=== PATIENT | male | born 1995 | race Caucasian/White ===

== ENCOUNTER 2020-02-18 14:47 | Observation (INO) | payer BC ==
[2020-02-18] MEDS ORDERED: NA CHLORIDE 0.9% 1,000 ML ONE (15:07)
[2020-02-18] MEDS ORDERED: PIPER/TAZO/NS 3.375gm 3.375 GM/100 ML BAG ONE (15:08)
[2020-02-18] MEDS ORDERED: ONDANSETRON 4 MG/2 ML VIAL IV PRN (15:21)
[2020-02-18] MEDS ORDERED: ACETAMINOPHEN 500 MG TAB PO PRN (15:21)
[2020-02-18] MEDS ORDERED: D5 0.45 NS 1,000 ML IV SCH (16:00)
[2020-02-18] MEDS ORDERED: BUPIVACA 0.25%/EPI 0.0005%/PF 30 ML VIAL ONE (16:11)
[2020-02-18] MEDS ORDERED: propofoL 200 MG/20 ML VIAL IV ONE (16:15)
[2020-02-18] MEDS ORDERED: ROCURONIUM 50 MG/5 ML VIAL IV ONE (16:16)
[2020-02-18] MEDS ORDERED: LIDOCAINE 2% MPF 5 ML VIAL ONE (16:16)
[2020-02-18] MEDS ORDERED: FENTANYL CITR 100 MCG/2 ML ONE (16:17)
--- NOTE | 2020-02-18 16:23 | ER ---
Nurse's Notes [facility] Name: Bereket Chisholm Age: 24 yrs Sex: Male : 1995 Arrival Date: 02/18/2020 Time: 14:50 Bed 6 Private MD: Diagnosis: Acute appendicitis Presentation: 02/17 14:50 Chief complaint: Patient states: Had an outpatient CT just prior to arrival which ss showed appendicitis. Pt c/o RLQ pain/ soreness x 4 days. Denies fever. Coronavirus screen: Patient denies a cough. Patient denies shortness of breath or difficulty breathing. Patient denies measured and/or subjective temperature greater than 100.4F prior to today's visit. Patient denies travel on a cruise ship or to a country the [facility] currently lists as an affected area. Patient denies contact with known and/or suspected case of COVID-19. Proceed with normal triage. Patient instructed to continue to wear a mask when interacting with others. Patient moved to private room, placed in contact and droplet isolation with eye protection until further assessment. Ebola Screen: Patient denies exposure to infectious person. Patient denies travel to an Ebola-affected area in the 21 days before illness onset. Initial Sepsis Screen: Does the patient meet any 2 criteria? No. Patient's initial sepsis screen is negative. Does the patient have a suspected source of infection? No. Patient's initial sepsis screen is negative. Risk Assessment: Do you want to hurt yourself or someone else? Patient reports no desire to harm self or others. Onset of symptoms was February 14, 2020. 14:50 Method Of Arrival: Wheelchair ss 14:50 Acuity: EMMA 3 ss Historical: - Allergies: 14:53 SHELLFISH; ss 14:53 peanuts; ss 14:53 Wheat/glutens; ss - PMHx: 14:53 None; ss - PSHx: 14:53 None; ss - Immunization history:: Adult Immunizations up to date. - Social history:: Smoking status: Patient denies any tobacco usage or history of. Screenin:53 Abuse screen: Denies threats or abuse. Denies injuries from another. Nutritional ss screening: No deficits noted. Tuberculosis screening: Never had TB. Fall Risk None identified. 14:53 Abuse screen: Denies threats or abuse. Nutritional screening: No deficits noted. ll1 Tuberculosis screening: No symptoms or risk factors identified. Fall Risk IV access (20 points). Total Baca Fall Scale indicates No Risk (0-24 pts). Assessment: 14:53 General: Appears in no apparent distress. Behavior is calm, cooperative. Pain: ll1 Complains of pain in abdomen Quality of pain is described as aching. GI: Abdomen is flat, Bowel sounds present X 4 quads. Abd is soft and non tender X 4 quads. Reports lower abdominal pain. 14:54 Neuro: No deficits noted. Cardiovascular: No deficits noted. Respiratory: No deficits ll1 noted. 16:01 Reassessment: Patient appears in no apparent distress at this time. No changes from ll1 previously documented assessment. Patient and/or family updated on plan of care and expected duration. Pain level reassessed. Patient is alert, oriented x 3, equal unlabored respirations, skin warm/dry/pink. Surgeon at bedside. 16:20 Reassessment: Patient appears in no apparent distress at this time. No changes from ll1 previously documented assessment. Patient and/or family updated on plan of care and expected duration. Pain level reassessed. Patient is alert, oriented x 3, equal unlabored respirations, skin warm/dry/pink. Vital Signs: 14:50 BP 127 / 72; Pulse 79; Resp 15; Temp 98.4(TE); Pulse Ox 99% on R/A; Weight 68.04 kg; ss Height 5 ft. 9 in. (175.26 cm); Pain 0/10; 15:13 BP 128 / 69; Pulse 78; Resp 16; Pulse Ox 100% ; ll1 16:01 BP 118 / 70; Pulse 71; Resp 16; Pulse Ox 100% ; Pain 2/10; ll1 14:50 Body Mass Index 22.15 (68.04 kg, 175.26 cm) ED Course: 14:50 Patient arrived in ED. ss 14:50 Anu Mckenzie RN is Primary Nurse. ll1 14:51 Chucky Flores MD is Attending Physician. kdr 14:52 Triage completed. ss 14:52 Maintain EMS IV. Dressing intact. Good blood return noted. Site clean \T\ dry. Gauge \T\ ll 1 site: 22 G R AC. 14:53 Arm band placed on right wrist. ss 14:53 Patient has correct armband on for positive identification. Bed in low position. Call light in reach. 16:20 No provider procedures requiring assistance completed. Patient admitted, IV remains in [address] 16:22 Chucky Flores MD is Hospitalizing Provider. [facility] 16:22 Chucky Flores MD is Hospitalizing Provider. [facility] Administered Medications: 15:11 Drug: Zosyn 3.375 grams Route: IVPB; Infused Over: 60 mins; Site: right antecubital; [facility] 16:19 Follow up: Response: No adverse reaction; IV Status: Infusion continued upon admission; [facility] IV Intake: 35ml 15:12 Drug: NS 0.9% 1000 ml Route: IV; Rate: 1 bolus; Site: right antecubital; [facility] 16:18 Follow up: Response: No adverse reaction; RASS: Alert and Calm (0); IV Status: ll1 Completed infusion; IV Intake: 1000ml Intake: 16:18 IV: 1000ml; Total: 1000ml. 1 16:19 IV: 35ml; Total: 1035ml. [facility] Outcome: 16:20 Admitted to OR accompanied by nurse, via wheelchair, with chart, Report called to OR [facility] nurse 16:20 Condition: stable 16:20 Instructed on the need for admit. 16:22 Decision to Hospitalize by Provider. [facility] 16:22 Patient left the ED. [facility] Signatures: Chucky Flores MD MD [facility] Alexa Camilo, GEO RN Anu Mckenzie RN RN [facility]
--- NOTE | 2020-02-18 16:23 | EDPHYS ---
Physician Documentation [facility] Name: Bereket Chisholm Age: 24 yrs Sex: Male : 1995 Arrival Date: 02/18/2020 Time: 14:50 Bed 6 Private MD: ED Physician Chucky Flores HPI: 02/17 15:02 This 24 yrs old Male presents to ER via Wheelchair with complaints of kdr abnormal CT- appendicitis. 15:02 The patient presents with abdominal pain right lower quadrant. Onset: The kdr symptoms/episode began/occurred gradually, 4 day(s) ago. The symptoms do not radiate. Associated signs and symptoms: Pertinent positives: nausea, Pertinent negatives: anorexia, blood in stools, chest pain, constipation, diarrhea, dysuria, fever, headache, hematuria, palpitations, shortness of breath, testicular pain, vomiting, vomiting blood. The symptoms are described as achy, dull, steady, vague. Modifying factors: The symptoms are alleviated by nothing, the symptoms are aggravated by pressure, touching the area. Severity of pain: At its worst the pain was mild moderate just prior to arrival, in the emergency department the pain is unchanged. The patient has not experienced similar symptoms in the past. Was seen in clinic and sent for outpatient CT. When the study was completed the patient was brought to the ED for further evaluation and admission. Historical: - Allergies: 14:53 SHELLFISH; ss 14:53 peanuts; ss 14:53 Wheat/glutens; ss - PMHx: 14:53 None; ss - PSHx: 14:53 None; ss - Immunization history:: Adult Immunizations up to date. - Social history:: Smoking status: Patient denies any tobacco usage or history of. ROS: 02/18 07:22 Constitutional: Negative for fever, chills, and weight loss, Eyes: Negative for injury, kdr pain, redness, and discharge, Neck: Negative for injury, pain, and swelling, Cardiovascular: Negative for chest pain, palpitations, and edema, Respiratory: Negative for shortness of breath, cough, wheezing, and pleuritic chest pain, Back: Negative for injury and pain, : Negative for injury, bleeding, discharge, and swelling, MS/Extremity: Negative for injury and deformity, Skin: Negative for injury, rash, and discoloration, Neuro: Negative for headache, weakness, numbness, tingling, and seizure activity. Psych: Negative for depression, anxiety, suicide ideation, homicidal ideation, and hallucinations, Allergy/Immunology: Negative for hives, rash, and allergies, Endocrine: Negative for neck swelling, polydipsia, polyuria, polyphagia, and marked weight changes, Hematologic/Lymphatic: Negative for swollen nodes, abnormal bleeding, and unusual bruising. Abdomen/GI: Positive for abdominal pain, Negative for vomiting, diarrhea, constipation, abdominal cramps, abdominal distension, anorexia, dysphagia, hematemesis, black/tarry stool, rectal pain. Exam: 07:22 Constitutional: This is a well developed, well nourished patient who is awake, alert, kdr and in no acute distress. Head/Face: Normocephalic, atraumatic. Eyes: Pupils equal round and reactive to light, extra-ocular motions intact. Lids and lashes normal. Conjunctiva and sclera are non-icteric and not injected. Cornea within normal limits. Periorbital areas with no swelling, redness, or edema. Neck: Trachea midline, no thyromegaly or masses palpated, and no cervical lymphadenopathy. Supple, full range of motion without nuchal rigidity, or vertebral point tenderness. No Meningismus. Chest/axilla: Normal chest wall appearance and motion. Nontender with no deformity. No lesions are appreciated. Cardiovascular: Regular rate and rhythm with a normal S1 and S2. No gallops, murmurs, or rubs. Normal PMI, no JVD. No pulse deficits. Respiratory: Lungs have equal breath sounds bilaterally, clear to auscultation and percussion. No rales, rhonchi or wheezes noted. No increased work of breathing, no retractions or nasal flaring. Back: No spinal tenderness. No costovertebral tenderness. Full range of motion. Skin: Warm, dry with normal turgor. Normal color with no rashes, no lesions, and no evidence of cellulitis. MS/ Extremity: Pulses equal, no cyanosis. Neurovascular intact. Full, normal range of motion. Neuro: Awake and alert, GCS 15, oriented to person, place, time, and situation. Cranial nerves II-XII grossly intact. Motor strength 5/5 in all extremities. Sensory grossly intact. Cerebellar exam normal. Normal gait. Psych: Awake, alert, with orientation to person, place and time. Behavior, mood, and affect are within normal limits. 07:22 Abdomen/GI: Inspection: abdomen appears normal, Bowel sounds: normal, Palpation: soft, mild abdominal tenderness, in the right lower quadrant, mass, is not appreciated, rebound tenderness, is not appreciated. Vital Signs: 02/17 14:50 BP 127 / 72; Pulse 79; Resp 15; Temp 98.4(TE); Pulse Ox 99% on R/A; Weight 68.04 kg; ss Height 5 ft. 9 in. (175.26 cm); Pain 0/10; 15:13 BP 128 / 69; Pulse 78; Resp 16; Pulse Ox 100% ; ll1 16:01 BP 118 / 70; Pulse 71; Resp 16; Pulse Ox 100% ; Pain 2/10; ll1 14:50 Body Mass Index 22.15 (68.04 kg, 175.26 cm) ss MDM: 02/18 07:25 Patient medically screened. [facility] 02/17 14:52 Order name: IV Saline Lock; Complete Time: 14:54 [facility] 02/17 14:52 Order name: Labs collected and sent; Complete Time: 14:54 [facility] 02/17 15:23 Order name: NPO EDMS Administered Medications: 02/17 15:11 Drug: Zosyn 3.375 grams Route: IVPB; Infused Over: 60 mins; Site: right antecubital; ll1 16:19 Follow up: Response: No adverse reaction; IV Status: Infusion continued upon admission; ll1 IV Intake: 35ml 15:12 Drug: NS 0.9% 1000 ml Route: IV; Rate: 1 bolus; Site: right antecubital; 1 16:18 Follow up: Response: No adverse reaction; RASS: Alert and Calm (0); IV Status: ll1 Completed infusion; IV Intake: 1000ml Disposition: 02/18/20 16:22 Hospitalization ordered by Chucky Flores for Inpatient Admission. Preliminary diagnosis is Acute appendicitis. - Bed requested for Operating Room. - Status is Inpatient Admission. ll1 - Condition is Stable. Signatures: Dispatcher [employer] EDMS Chucky Flores MD MD [facility] Alexa Camilo RN RN ss Anu Mckenzie RN RN ll1 Corrections: (The following items were deleted from the chart) 15:13 14:52 BASIC METABOLIC PANEL+C.LAB.BRZ ordered. EDMS EDMS 15: 14:52 CBC+H.LAB.BRZ ordered. EDMS EDMS : 14:52 HEPATIC FUNCTION+C.LAB.BRZ ordered. EDMS EDMS 15: 14:52 LIPASE+C.LAB.BRZ ordered. EDMS EDMS
[2020-02-18] MEDS ORDERED: Ringers Lactate 1,000 ML IV ONE (16:33)
[2020-02-18 16:34] VITALS: O2SAT 100
[2020-02-18] MEDS ORDERED: KETOROLAC 30 MG/ML INJ ONE (17:00)
[2020-02-18] MEDS ORDERED: ONDANSETRON 4 MG/2 ML VIAL ONE (17:00)
[2020-02-18] MEDS ORDERED: dexAMETHasone 10 MG/ML VIAL ONE (17:00)
[2020-02-18] MEDS ORDERED: GLYCOPYRROLATE 0.2 MG/ML SYR ONE ×2 (17:09→17:25)
[2020-02-18] MEDS ORDERED: NEOSTIGMINE 1 MG/ML -5 ML ONE ×2 (17:10→17:25)
--- NOTE | 2020-02-18 17:19 | P.OP ---
Preoperative diagnosis: Acute Non-Perforated Appendicitis Postoperative diagnosis: Acute Non-Perforated Appendicitis Primary procedure: Laparoscopic Appendectomy Anesthesia: GETA + Local Estimated blood loss: <5cc Specimen: Vermiform Appendix Findings: Acute Non-Perforated Appendicitis Complications: None Transferred to: Recovery Room Condition: Good
[2020-02-18 18:09] VITALS: TEMP 96.5
[2020-02-18] MEDS ORDERED: HYDROCODONE/APAP 5/325 MG TAB ONE (18:13)
[2020-02-18 18:32] VITALS: BP 119/55
--- NOTE | 2020-02-19 00:47 | HP ---
Date of Admission: 02/18/2020 Brief History Of Present Illness: The patient is a 24-year-old male, who developed discomfort in his lower abdomen in a beltlike distribution in the infraumbilical position suprapubic area earlier toda y. As such, he went to [facility], who evaluated him, sent him for imaging. He w as noted to have a CT scan of the abdomen and pelvis, which was officially read as acute appendicitis and as such, he was transferred over to the ER from our Imaging Department. He has evaluated by Dr. Lam, who found his signs and symptoms consistent with acute appendicitis. As such, I was consul joann for the above stated complaints. The patient states that now his pain is located in the right lo wer quadrant. He has never had similar episodes before in the past. No sick contacts. No recent tr harsha. No COVID exposures he is aware of. Past Medical History: Significant only for seasonal allergies. Past Surgical History: He has only had wisdom tooth extractions. Allergies: HE HAS REPORTED ALLERGIES ONLY TO PEANUTS, SHELLFISH, AND WHEAT. Social History: Denies smoking, alcohol, recreational drug use. Review of Systems: Ten-point review of systems other than HPI, denies. Physical Examination: General: He is awake, alert, oriented. Psychiatric: Appropriate. Conversive. HEENT: Normocephalic. Sclerae anicteric. Mucous membranes are moist. Oropharynx clear. Neck: Supple. No JVD. Chest: Normal expansion and excursion. Cardiovascular: Regular rate and rhythm. Pulmonary: Clear to auscultation bilaterally. Abdomen: Soft with positive right lower quadrant focal peritonitis at McBurney's point. Positive rodrigues prapubic tenderness. Positive voluntary guarding. Minimal rebound. Extremities: No clubbing, cyanosis, or edema. Pelvic: Stable. Skin: Warm and dry. Laboratory Data: White blood count of 4.6, hemoglobin is 13.8, hematocrit of 41.1, platelets are 253 . His neutrophils are 57%. Sodium 141, potassium 4.5, chloride 107, carbon dioxide 30, BUN 13, crea tinine 0.7, glucose is 100, calcium 9.6, total bilirubin 0.3, AST 11, ALT 19, alkaline phosphatase is 48, lipase is 87. He had a CT scan performed of the abdomen and pelvis, which was officially read a s appendicitis. The appendix is dilated, extends posteriorly from the cecum. Mild stranding within the adjacent fat. Assessment And Plan: A 24-year-old male, who comes in with signs and symptoms of acute appendicitis. 1.IV fluid hydration. 2.Antibiotic coverage. The patient has received Zosyn 3.375. 3.N.p.o. status. 4.I have explained the risks, benefits, and alternatives of laparoscopic possible open appendectomy including, but not limited to bleeding, infection, damage to the surrounding tissue, need for further operations and procedures. The patient agrees to proceed as indicated. DANNY/SANJAY Voice ID: [id number]
--- NOTE | 2020-02-19 01:21 | OP ---
Date of Procedure: 02/18/2020 Surgeon: Joann Jaramillo MD, Preoperative Diagnosis: Acute nonperforated appendicitis. Postoperative Diagnosis: Acute nonperforated appendicitis. Procedure Performed: Laparoscopic appendectomy. Anesthesia: General endotracheal plus local with 0.25% Marcaine with epinephrine. Estimated Blood Loss: Less than 5 cc. Specimen: Vermiform appendix. Findings: Acute nonperforated appendicitis. Complications: None. Disposition: Transferred to recovery room in good condition. Procedure In Detail: After informed consent was obtained, the patient was brought to the operating r oom, prepped and draped in the usual sterile fashion. After adequate anesthesia was achieved, an inf raumbilical area was anesthetized with 0.25% Marcaine, sharply incised. A 5 mm trocar was introduced into the abdomen without evidence of complication. Insufflation was obtained to 15 mmHg at this heavenly e. No injury to vital structures upon entry into the abdomen. Additional trocar site chosen in the right lower quadrant. This was similarly anesthetized and sharply incised. A 5 mm trocar was introd uced in the abdomen without evidence of complication. The umbilical trocar was then up-sized to a 12 mm under direct vision without evidence of complication. The additional trocar site was placed in l eft lower quadrant. This was similarly anesthetized and sharply incised. A 5 mm trocar was introduc ed in the abdomen without evidence of complication. The patient was positioned head down right-side up position. Ratcheted grasper was used to grasp the patient's appendix, found in the right lower qu adrant. It was consistent with an acute nonperforated appendicitis with inflammatory changes, partic ularly to the tip. This was grasped, elevated, and mesoappendiceal window was created at the conflue nce of the cecum with a [place] retractor. Endo-DENISE 35 blue load fired across the base of the appen ariel with good approximation of the tissues. At this point, the LigaSure was used to take the mesoapp endix down without evidence of complication. Good hemostasis was achieved. There was a minimal blee ding for the staple line. As such, the appendix was placed in EndoCatch bag, removed through the umb ilical trocar site and sent off for pathologic examination. The area was reinsufflated and inspected at this point. There still continued to be a slight amount of bleeding from the staple line. As rodrigues ch, a clip executive business coach was brought to the field and a single clip was fired across the staple line with g ood hemostasis at this point. The abdomen was copiously irrigated multiple times with approximately 1 L of saline and then suctioned out completely dry. There were no additional hemostatic maneuvers r equired and the clips were found to be in good anatomic position and no bleeding from the staple at t his point. The patient was positioned in neutral position. The remainder of the effluent was suctio saritha out. The staple line was inspected one last time and found to have good hemostasis at this point . The Jameson-Mylene suture passer was brought on the field. The umbilical trocar was removed. [facility] umbilical trocar site was closed using a Jameson-Mylene suture passer with 0 Vicryl in an interrup joann fashion with good approximation of tissues. There abdomen was completely desufflated under direc t visualization without evidence of complication and all trocars were removed. All skin incisions we re copiously irrigated and then closed with a 4-0 Monocryl in a running fashion. Dermabond placed ov er top. The patient tolerated the procedure well without evidence of complication, transferred to [facility] PACU in good condition. All counts were correct at the end of the case. DANNY/SANJAY Voice ID: [id number] Report ID: [id number]
== END 2020-02-18 19:00 | disposition home or self-care (01) ==
LOC: ER 14:47 → ERHOLD 15:32
PROVIDERS: ADMIT Surgery; ATTEND Surgery
PROC: 0DTJ4ZZ Resection of Appendix, Percutaneous Endoscopic Approach (ICD-10-PCS; principal; 2020-02-18 15:00)
DX: K35.80 Unspecified acute appendicitis (principal)
CPT/HCPCS: 44970; 96365; 88304; 99285; J2704; J3010; J2543; J1100; J2710 ×2; J7120; J7030; J2405